=== PATIENT | female | born 1980 | race Caucasian/White ===

== ENCOUNTER → 2017-06-23 | Outpatient (CLI) | payer OTHER ==
[~2017-06-23] MED LIST: ALLO100 PO; ANTIDEPRESSANT; ASCO500 PO; ASPI81EC PO; BCP'S; BUPR75 PO; CHOLESTEROL MED; ERGO400 PO; ESCI20 PO; FERROUS GLUCONATE PO; GEMF600 PO; HYDACE5325 PO; LEVSOD75 PO; METF500C PO; MUPI2TO TOP; NAPR500 PO; NIAC250ER PO; OXYACE5T PO; PRAV20 PO; SULTRIDS PO; TOCO400 PO; TRAM50 PO; TRIGLYCERIDE MED; [UNRECOGNIZED DRUG - REMARK]
[2017-06-23 15:22] LABS: Specimen Source URINE
[2017-06-23 15:23] LABS: Source, Urine Voided
[2017-06-23 16:29] LABS: Bilirubin, Urine Neg (Neg); Blood, Urine 3+ (Neg); Glucose Qualitative, Urine Neg (Neg); Ketones, Urine Neg (Neg); Leukocyte Esterase, Urine 2+ (Neg); Nitrite, Urine Neg (Neg); Protein, Urine Neg (Neg); Urobilinogen, Urine NORM (Normal)
[2017-06-23 16:40] LABS: Color, Urine Pale Yellow (P-Yellow)
[2017-06-23 16:41] LABS: Appearance, Urine Hazy (Clear)
[2017-06-23 16:42] LABS: Bacteria Few /hpf; Squamous Epithelial Cells Few /hpf (Few)
[2017-06-24 11:28] LABS: Candida species (DNA Probe) Negative (NEGATIVE); G. vaginalis (DNA Probe) Positive (NEGATIVE); T. vaginalis (DNA Probe) Negative (NEGATIVE)
[2017-06-24 14:50] LABS: Source Urine
== END ==
LOC: LAB 14:00
PROVIDERS: Nurse Practitioner Family
DX: R10.2 Pelvic and perineal pain (principal)
CPT/HCPCS: 81001; 87086; 87480; 87491; 87510; 87591; 87660